=== PATIENT | male | born 1955 | race Caucasian/White ===

== ENCOUNTER 2019-08-29 02:12 | Emergency (ER) | payer BC ==
[~2019-08-29] VITALS: Ht 170.2 cm; Wt 80.0 kg
[2019-08-29 05:06] LABS: HEMATOCRIT. 41.3 % (42.0-52.0); HEMOGLOBIN. 14.1 g/dL (14.0-18.0); MEAN CORPUSCULAR HEMOGLOBIN 31.4 pg (28.0-32.0); MEAN CORPUSCULAR VOLUME 91.7 fL (80.0-94.0); MEAN PLATELET VOLUME 9.9 fl (7.4-10.4); PLATELET 203 x1000/uL (130-400); RED CELL DISTRIBUTION WIDTH 14.8 % (11.6-14.6)
[2019-08-29 05:13] LABS: CHLORIDE 104 mEq/L (98-107)
[2019-08-29 05:56] VITALS: BP 134/79
[2019-08-29 10:25] LABS: PLATELET ESTIMATE NORMAL
== END 2019-08-29 05:57 | disposition home or self-care (01) ==
LOC: ER 02:12
DX: I11.0 Hypertensive heart disease with heart failure (principal); I50.9 Heart failure, unspecified; I20.9 Angina pectoris, unspecified
CPT/HCPCS: 36415; 71045; 80053; 83880; 84484; 85025; 93005; 99284